=== PATIENT | female | born 1965 | race Caucasian/White ===

== ENCOUNTER 2017-02-22 09:43 | Day surgery (SDC) | payer OTHER ==
[2017-02-10 11:45] VITALS: BMI 28.3
--- NOTE | 2017-02-16 11:21 | HP ---
Admitting History and Physical - Primary Care Physician PCP: Cayden Odell - Admission Chief Complaint: Right breast atypia and LCIS History of Present Illness: 51 year old premenapausal female with H/O prior silicone breat augmentation 2011. Mammogram 12/2016 showed calcifications right breast posterior 5:00. Stereotactic core biopsy right breast 12/2016 showed LCIS and atypia. History Source: Patient Limitations to Obtaining History: No Limitations - Past Medical History Pulmonary: Yes: Asthma Reproductive: Yes: Other (menorhagia) ...LMP Comment: POST HYSTERECTOMY BSO- 01/2017 Infectious Disease: Yes: Other (herpes) Psych: Yes: Anxiety - Past Surgical History Past Surgical History: Yes: Hysterectomy (TAHBSO 01/2017 benign), Tubal Ligation (2001) Additional Past Surgical History: abdominoplasty 2005 Bilateral silicone augmentation 201right core bx 2015 benign left foot surgery - Advance Directives Advance Directives: Yes: Health Care Proxy - Smoking History Smoking history: Former smoker Have you smoked in the past 12 months: No If you are a former smoker, when did you quit?: 2006 - Alcohol/Substance Use Hx Alcohol Use: Yes (SOCIALLY) Home Medications - Allergies Allergies/Adverse Reactions: Allergies Allergy/AdvReac Type Severity Reaction Status Date / Time Cephalosporins Allergy Severe RESPIRATORY Verified 02/10/17 11:48 DISTRESS moxifloxacin HCl Allergy Severe SEVERE ABD Verified 02/10/17 11:48 [From Avelox] PAIN, DIFFICULTY BREATHING Sulfa (Sulfonamide Allergy Severe RESPIRATORY Verified 02/10/17 11:48 Antibiotics) DISTRESS CAT SCAN DYE Allergy Severe RESPIRATORY Uncoded 02/10/17 11:48 DISTRESS - Home Medications Home Medications: Ambulatory Orders Biotin 1 mg PO DAILY 02/10/17 Ca/D3/Mag#11/Zinc/Accountant Bookkeeper/Eyal/Bor [Caltrate 600+D Plus Tablet] 1 each PO DAILY 09/28 Salmeterol/Fluticasone [Advair 250Mcg/50Mcg -] 1 inh IH BID 02/10/17 Turmeric Root Extract [Turmeric] 500 mg PO DAILY 02/10/17 Valacyclovir HCl [Valtrex] 1,000 mg PO DAILY 02/10/17 Family Disease History - Family Disease History Family Disease History: CA: Brother (CRC 42 living) Physical Examination Constitutional: Yes: Well Nourished Breast(s): Yes: Other (Bilateral silicone implants intact ptotic breasts over implants no palpable masses or adenopathy bilaterally) Problem List - Problems (1) Atypical ductal hyperplasia of right breast Code(s): N60.91 - UNSPECIFIED BENIGN MAMMARY DYSPLASIA OF RIGHT BREAST Assessment/Plan Right breast wide excision with mammogram needle localization
[2017-02-22] MEDS ORDERED: ISOSULFAN BLUE 10 MG/ML VIAL SQ ONE (12:41)
[2017-02-22] MEDS ORDERED: MIDAZOLAM HCL 2 MG/2 ML SINGLE DOSE VIAL ONE ×2 (13:02→13:03)
[2017-02-22] MEDS ORDERED: LIDOCAINE HCL/PF 2% SDV 5ML VIAL ONE (13:03)
[2017-02-22] MEDS ORDERED: PROPOFOL 20 ML ONE (13:03)
[2017-02-22] MEDS ORDERED: SUCCINYLCHOLINE CHLORIDE 200 MG/10 ML VIAL ONE (13:05)
[2017-02-22] MEDS ORDERED: ePHEDrine SULFATE 50 MG/1 ML AMPULE ONE (13:16)
[2017-02-22] MEDS ORDERED: BUPIVACAINE HCL/PF 0.25% (2.5MG/ML) 10 ML VIAL IJ ONE (13:50)
[2017-02-22] MEDS ORDERED: KETOROLAC TROMETHAMINE 30 MG/1 ML VIAL IVPUSH PRN (14:05)
[2017-02-22] MEDS ORDERED: ONDANSETRON 4 MG/2 ML VIAL IVPB PRN (14:05)
[2017-02-22] MEDS ORDERED: DEXTROSE 5%-0.45% SALINE 1,000 ML IV SCH (14:15)
[2017-02-22 14:59] VITALS: TEMP 97.6
[2017-02-22 15:51] VITALS: BP 160/82; PULSE 60
--- NOTE | 2017-02-23 12:30 | OP ---
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 PROCEDURE: Right breast wide excision with needle localization. ANESTHESIA: General laryngeal mask airway anesthesia. PRIMARY SURGEON: Alex Odell MD SENIOR UI DESIGNER: GEOVANNA Proctor COMPLICATIONS: There were no complications. INDICATIONS: Briefly, the patient is a 51-year-old postmenopausal white female of Faro[place], [place], [place] descent. She has no family history of breast or ovarian cancer. The patient has a history of silicone augmentation implants in October of 2011. She underwent a benign right breast core biopsy in 2014. She recently underwent a mammography in December of 2016, was found to have some calcifications in the right breast 5 o'clock region and underwent a stereotactic biopsy on December 31, 2016, showing LCIS and atypia. Biopsy was reviewed confirming this, and she was booked for right breast wide excision with mammographic needle localization. The patient was brought in for the procedure on February 22, 2017. She first underwent a mammographic needle localization, was brought to the holding area in the OR. In the holding area, site verification was made and informed consent was obtained. DESCRIPTION OF PROCEDURE: She was brought into the operating room and laid on the OR table in the supine position. Venodynes were placed on the lower extremities. She received no antibiotics given the small nature of the procedure. She underwent general laryngeal mask airway anesthesia. The right breast was sterilely prepped and draped in the usual fashion. A curvilinear incision was made just above the exit side of the wire for the skin in the 5 o'clock region of the right breast, and dissection was undertaken around the needle localization. The breast tissue was completely removed from around the wire and oriented with the long-lateral short-superior suture. Specimen radiographs showed removal of the clip in question. Hemostasis was achieved. The breast parenchyma was then reapproximated using 2-0 plain suture. The skin was closed using interrupted 3-0 deep dermal Vicryl suture and a running 4-0 subcuticular Monocryl suture. Mastisol and Steri-Strips were applied over the wound with a compressive dressing placed over this. The patient tolerated the procedure well without difficulty, was brought to the post-anesthesia care unit in stable condition. She will be recovered and discharged home the same day. Estimated blood loss was minimal. All sponge and needle counts were correct. She is to follow up in the office in one week for a formal wound pathology check. ALEX ODELL M.D. [id number]
--- NOTE | 2017-02-24 12:01 | PATH ---
Surgical Pathology Report Patient Name: GERALDINE HATFIELD [facility]. Rec. #: [id number] /Age/Gender: 1965 (Age: 51) / F Account: [id number] Location: [facility] AMBULATORY Taken: 02/22/2017 Received: 02/22/2017 Reported: 02/24/2017 Physicians: Cayden Odell M.D. Specimen(s) Received RIGHT BREAST WIDE EXCISION Clinical History Atypia on core biopsy Final Diagnosis RIGHT BREAST, WIDE EXCISION WITH WIRE LOCALIZATION: FOCAL ATYPICAL LOBULAR HYPERPLASIA (ALH) ARISING IN A BACKGROUND OF FIBROCYSTIC CHANGES INCLUDING USUAL DUCTAL HYPERPLASIA (UDH), COLUMNAR CELL CHANGE, STROMAL FIBROSIS, DUCTAL DILATATION, CYSTIC APOCRINE METAPLASIA, AND ASSOCIATED CALCIFICATION. CHANGES CONSISTENT WITH PRIOR BIOPSY SITE PRESENT. NO RESIDUAL LOBULAR CARCINOMA IN SITU (LCIS) IDENTIFIED. Comment: Also see [id number]. Electronically Signed Stu Parikh M.D. Gross Description Received in formalin, labeled "right breast wide excision," is a 2.8 x 2.5 x 1.9 cm. fang-yellow, irregular, portion of fibroadipose tissue. There is a needle localization wire separately received within the container which appears to have detached from the specimen. There is a short suture marking the superior aspect and a long suture marking the lateral aspect, per the surgeon. There is no skin or nipple present. The specimen is inked as follows: superior and lateral blue; inferior green; medial yellow; anterior red; deep black. The specimen is serially sectioned from lateral to medial. Sectioning reveals a 0.9 x 0.9 x 0.7 cm ill-defined focus of firm fibrosis. No definite mass is identified. The focus of firm fibrosis abuts the superior and deep margins. The specimen is entirely and sequentially submitted in 7 cassettes with the lateral margin in cassette 1, the medial margin in cassette 7 and the firm focus in cassettes 3-6. Time to formalin fixation: 13 minutes Total formalin fixation time: Approximately 28 hours. 02/23/2017 [facility]02/23/2017
== END 2017-02-22 15:50 | disposition home or self-care (01) ==
LOC: FASU 09:43
PROVIDERS: ATTEND Surgery Surgical Oncology
PROC: 0HBT0ZX Excision of Right Breast, Open Approach, Diagnostic (ICD-10-PCS; principal; 2017-02-22 13:00)
DX: D05.01 Lobular carcinoma in situ of right breast (principal); N60.81 Other benign mammary dysplasias of right breast; N62 Hypertrophy of breast; N60.31 Fibrosclerosis of right breast; N64.89 Other specified disorders of breast; N60.11 Diffuse cystic mastopathy of right breast
CPT/HCPCS: 19281; 88307-TC; 94760

== ENCOUNTER 2017-06-08 06:15 | Day surgery (SDC) | payer SELFPAY ==
[2017-05-30 16:54] VITALS: BMI 27.4
[2017-06-08] MEDS ORDERED: GENTAMICIN SO4 80 MG/2 ML VIAL ONE (06:54)
[2017-06-08] MEDS ORDERED: LIDOCAINE 1%/EPI 1:100000 (20 ML MULTI DOSE VIAL) ONE (06:55)
[2017-06-08] MEDS ORDERED: LIDOCAINE HCL 1%, 10 MG/ML (20ML VIAL) ONE (06:55)
[2017-06-08] MEDS ORDERED: BUPIVACAINE HCL/PF 0.5% (5MG/ML) 10 ML VIAL ONE (06:55)
[2017-06-08] MEDS ORDERED: GUM MASTIC/STORAX/MSAL/ALCOHOL 1 DRP DROPSBTL MC ONE (06:55)
[2017-06-08] MEDS ORDERED: BACITRACIN 15 GM TUBE TOPICAL OINTMENT ONE (06:55)
[2017-06-08] MEDS ORDERED: PROPOFOL 20 ML ONE ×5 (07:19→11:29)
[2017-06-08] MEDS ORDERED: MIDAZOLAM HCL 2 MG/2 ML SINGLE DOSE VIAL ONE ×2 (07:19→12:27)
[2017-06-08] MEDS ORDERED: SUCCINYLCHOLINE CHLORIDE 200 MG/10 ML VIAL ONE (07:19)
[2017-06-08] MEDS ORDERED: ROCURONIUM BROMIDE 50 MG/5 ML VIAL ONE ×2 (07:19→08:58)
[2017-06-08] MEDS ORDERED: LIDOCAINE HCL/PF 2% SDV 5ML VIAL ONE (07:20)
[2017-06-08] MEDS ORDERED: LIDOCAINE HCL 2% JELLY (5 ML/TUBE) ONE (07:20)
[2017-06-08] MEDS ORDERED: ONDANSETRON 4 MG/2 ML VIAL ONE (07:20)
[2017-06-08] MEDS ORDERED: DEXAMETHASONE SOD PHOSPHATE 4 MG/1 ML VIAL ONE (07:20)
[2017-06-08] MEDS ORDERED: HALOPERIDOL LACTATE 5 MG/ML ONE (07:42)
[2017-06-08] MEDS ORDERED: VANCOMYCIN 1,000 MG VIAL (RESTRICTED TO ID ONLY) ONE (07:43)
[2017-06-08] MEDS ORDERED: ALBUTEROL SO4 6.7 GM HFA INHALER IH ONE (07:43)
[2017-06-08] MEDS ORDERED: ePHEDrine SULFATE 50 MG/1 ML AMPULE ONE (08:24)
[2017-06-08] MEDS ORDERED: BUPIVACAINE HCL/PF 2.5 MG/ML - 30 ML VIAL IJ ONE (09:36)
[2017-06-08] MEDS ORDERED: NEOSTIGMINE METHYLSULFATE 0.5 MG/ML - 10 ML MDV ONE (12:33)
[2017-06-08] MEDS ORDERED: GLYCOPYRROLATE 0.2 MG/1 ML VIAL ONE (12:34)
[2017-06-08] MEDS ORDERED: ACETAMINOPHEN 325 MG TABLET (FP) PO PRN (13:14)
[2017-06-08] MEDS ORDERED: ONDANSETRON 4 MG/2 ML VIAL IVPB PRN (13:14)
[2017-06-08] MEDS ORDERED: diazePAM 5 MG TABLET PO PRN (13:14)
[2017-06-08] MEDS ORDERED: HYDROmorphone HCL CARPU-JECT 1 MG/1 ML DISP.SYRIN IVPB PRN (13:14)
[2017-06-08] MEDS ORDERED: LACTATED RINGERS SOLUTION 1,000 ML IV SCH ×2 (13:15→13:30)
[2017-06-08] MEDS ORDERED: PROMETHAZINE HCL 25 MG/1 ML VIAL IVPUSH PRN (13:16)
[2017-06-08] MEDS ORDERED: ONDANSETRON 4 MG/2 ML VIAL IVPUSH PRN (13:16)
[2017-06-08] MEDS ORDERED: oxyCODONE HCL 5 MG TABLET PO PRN ×2 (13:16)
--- NOTE | 2017-06-08 13:28 | OP ---
Operative Note - Note: Operative Date: 06/08/17 Pre-Operative Diagnosis: Unsatisfactory appearance of abdomen and bilateral breasts Operation: Bilateral breast mastopexy with implant exchange and abdominoplasty with liposuction of the flanks. Findings: Lipodystrophy of abdomen and flanks, ptosis of breasts Implants: breast silicone implants Post-Operative Diagnosis: Same as Pre-op Surgeon: Alexandre Cho School Photographer: Ashley Brady Anesthesiologist/SHOT EXAMINER: Pancho Nickerson Estimated Blood Loss (mls): 100 Drains & Tubes with Location: ELLEN to to abdomen
[2017-06-08] MEDS ORDERED: PT OWN MED DRAWER 7, Y5N ONE (21:45)
[2017-06-08] MEDS: CLINDAMYCIN IVPB SCH (21:52)
[2017-06-08] MEDS: SODIUM CHLORIDE IVPB SCH (21:52)
[2017-06-08] MEDS: BUDESONIDE/FORMETEROL FUMARATE 80/4.5 mcg INHALER IH SCH (21:52)
[2017-06-08] MEDS ORDERED: PATIENT'S OWN MEDICATION (NON-FORMULARY) (Salmeterol/Fluticasone [Advair 250mcg/50mcg -] 1 IH SCH (22:00)
[2017-06-09] MEDS: CLINDAMYCIN IVPB SCH (02:25)
[2017-06-09] MEDS: SODIUM CHLORIDE IVPB SCH (02:25)
[2017-06-09] MEDS ORDERED: LOSARTAN POTASSIUM 25 MG TABLET PO SCH (10:00)
[2017-06-09] MEDS: BUDESONIDE/FORMETEROL FUMARATE 80/4.5 mcg INHALER IH SCH (10:04)
--- NOTE | 2017-06-09 13:36 | OP ---
DATE OF OPERATION: 06/08/2017 PREOPERATIVE DIAGNOSES: 1. Abdominal and flank lipodystrophy. 2. Diastasis recti. 3. Ptosis of bilateral breasts. POSTOPERATIVE DIAGNOSES: 1. Abdominal and flank lipodystrophy. 2. Diastasis recti. 3. Ptosis of bilateral breasts. PROCEDURE: 1. Revision abdominoplasty with anterior rectus sheath plication. 2. Liposuction of bilateral flanks. 3. Removal of bilateral breast implants with open periprosthetic capsulotomy. 4. Bilateral breast augmentation/mastopexy (right breast - Sientra [id number]; left breast - Sientra [id number]). ATTENDING SURGEON: Alexandre Cho MD WINDOW AND DOOR INSTALLER: GEOVANNA Cortes ANESTHESIA: General endotracheal. ESTIMATED BLOOD LOSS: 100 mL. SPECIMEN: Right breast skin and tissue to pathology. DRAIN: A No. 15 round Adiel drain x1 to abdomen. COMPLICATIONS: None. CONDITION: Stable to recovery room, extubated. INDICATIONS: The patient is a 52-year-old female who has previously undergone an abdominoplasty as well as bilateral augmentation mastopexy who presents with diastasis of rectus abdominis muscles and ptosis of bilateral breasts. She is, therefore, indicated for revision of her previous surgeries in addition of liposuction of the flanks. The risks, benefits, and alternatives of the surgery were discussed with the patient in detail on multiple occasions, and all questions were answered. The risks include, but are not limited to, bleeding, infection, pain, need for revision or further surgery, partial or complete flap loss, partial or complete loss of the umbilicus, residual breast asymmetry, damage to neighboring structures including nerves, arteries, veins, and tendons. The patient understands these risks and has elected to proceed with surgery. DESCRIPTION OF PROCEDURE: After proper identification and marking of the patient in the preoperative holding area, the patient was transported to the operating room and placed supine on the table while noninvasive anesthesia monitors were applied. Intravenous access was established. General anesthesia was administered, and the patient was intubated without difficulty. SCD boots were applied to bilateral lower extremities. Intravenous antibiotics were then given. A Gunderson catheter was then placed. The patient's bilateral breasts as well as abdomen and flanks were then prepped and draped in the usual sterile fashion. After a time-out was performed, attention was turned towards the lower abdominal incision marking. This was infiltrated with a local anesthetic solution consisting of 1% lidocaine with 1:100,000 units of epinephrine mixed with 0.5% Marcaine. A total of 10 mL was injected into the proposed lower abdominal incision as well as to bilateral breast vertical incisions. The lower abdominal incision was then made with a No. 10 blade. This was carried down through the full thickness of the subcutaneous tissue until the anterior abdominal wall was reached. The superior abdominal skin flap was then raised up to the level of the umbilicus. At this point, skin hooks were placed at 12 o'clock and 6 o'clock position of the umbilicus, and the umbilicus was circumferentially incised with a No. 15 blade. A periumbilical dissection was performed with the Metzenbaum scissors with care taken to leave adequate periumbilical fat around the stalk. Next, the superior abdominal skin flap was raised up to the xiphoid process in the midline and the costal margin bilaterally. Examination of the anterior abdominal wall revealed multiple previous Ethibond and Prolene sutures. These were all removed and discarded. At this point, standard tumescent solution was infiltrated into bilateral flanks. A total of 1 L was infiltrated, 500 mL into each flank. While this was given time to take effect, attention was turned toward the plication of the anterior rectus sheath. Elliptical imbrication patterns were drawn supraumbilically and infraumbilically. A No. 2 looped PDS suture was then used to perform the plication of the rectus in a simple running fashion. Separate sutures were placed supraumbilically and infraumbilically. At this point, obliquely oriented elliptical pattern imbrications were designed over bilateral external obliques in order to further contour the lateral abdominal wall. A 2-0 PDS suture was used to perform these bilateral imbrications in simple running fashion. Once the anterior abdominal wall plication was completed, power-assisted liposuction was performed of bilateral flanks using the 5 mm. Once this was completed, 3-0 PDS sutures were placed at the 12, 3, 6, and 9 o'clock position of the umbilicus and were tacked down to the fascia. The patient was then placed into a flexed position. The amount of redundant abdominal skin to be excised was marked, and this was excised and discarded. Hemostasis was then achieved. The anterior abdominal wall was then irrigated. A No. 15 round Adiel drain was then placed into the abdominal dissection pocket and brought out through the right lateral incision and secured to the skin with a 3-0 nylon suture. The abdominal skin edges were then reapproximated temporarily using a skin stapler. The site of the umbilicus transposition was marked, and a vertically-oriented ellipse was excised with the subcutaneous fat. The umbilicus along with the 3-0 PDS sutures were brought out through this excision site and were tacked to the dermis at the 12, 3, 6, and 9 o'clock positions. These were then tied down in order to give appropriately umbilical contour. The remainder of the umbilical closure was then performed using a 3-0 PDS in a buried deep dermal fashion followed by a 5-0 nylon in a simple running fashion. The site of the previous umbilicus was closed in a vertical fashion with superior and inferior dogears excised using a 3-0 PDS in a buried deep dermal fashion followed by a 5-0 nylon in a simple running fashion. The abdominal closure was then performed in layers using a 2-0 Vicryl in interrupted buried fashion in Katrina layer followed by 3-0 PDS in a buried deep dermal fashion and a 3-0 Monocryl in a running subcuticular fashion. Mastisol and Steri-Strips were placed over his, and a Biopatch and Tegaderm were placed over the drain exit site. At this point, attention was turned to bilateral breasts where the size Donis pattern scars were marked. Beginning on the right breast, the vertical portion of the scar was incised. Electrocautery was used to carry this down through the full thickness of the breast tissue until the capsule surrounding the breast implant was encountered. This capsule was incised, and the intact breast implant was removed and passed off the field. At this point, the right breast capsule was inspected, and it was noted to be soft. Capsulotomy was performed laterally and inferiorly, and the right breast pocket was then copiously irrigated. A saline breast sizer was placed into the right breast pocket, and the skin edges were temporarily stapled closed. The sizer was then inflated with 385 mL of air. Attention was then turned towards the left breast where a similar procedure was performed in order to incise the breast skin, dissect down to the breast capsule, and remove the breast implant. A capsulotomy of the left breast capsule was performed as well along the inferior and lateral aspect. Once this was completed, a sizer was placed into the left breast pocket, the skin edges were temporarily reapproximated with a skin stapler and the sizer inflated to 435 mL with air. At this point, the patient was sat upright, and the left breast contour was noted to be excellent. The right breast contour was noted to have redundant skin in a horizontal fashion; therefore, this breast was tailor tacked until the appropriate contour was achieved. Once this was accomplished, the patient was laid back down. The skin partha were removed after marking the skin to be excised. The right breast pocket was then irrigated with triple antibiotic solution. At this point, a Sientra style 107, 385-mL moderate profile smooth, round silicone implant was opened and bathed in triple antibiotic solution. At this point, gloves were changed, and a Penny Funnel was used to insert the breast implant into the right breast pocket. After proper positioning was confirmed, the redundant skin was excised along both the vertical and horizontal limbs. The T point at the inframammary fold was then reapproximated using a 2-0 nylon suture in a half buried horizontal mattress fashion. The vertical and horizontal limbs were then closed in layers with a 3-0 PDS in a buried deep dermal fashion followed by a 4-0 Monocryl in a running subcuticular fashion. At this point, attention was turned towards the left breast where the same procedure was performed in order to remove the sizer and wash the pocket. The left breast inserted was a Sientra style 107, 435-mL moderate profile smooth, round silicone implant. Once proper positioning was ensured, the skin edges were reapproximated along the vertical and horizontal limbs using a 3-0 PDS in a buried deep dermal fashion followed by a 4-0 Monocryl in a running subcuticular fashion. Once all incisions were completely closed, dressings consisting of Mastisol and Steri-Strips followed by ABD pads, a soft surgical bra, and an abdominal binder were placed. The drain was hooked up to bulb suction, and the patient at this point was slowly awakened and was extubated without incident and then was transported to recovery room in stable condition. Ed [id number]
[2017-06-09 14:14] VITALS: BP 112/68; PULSE 70; TEMP 98.2
--- NOTE | 2017-06-10 15:42 | PATH ---
Surgical Pathology Report Patient Name: GERALDINE HATFIELD [facility]. Rec. #: [id number] /Age/Gender: 1965 (Age: 52) / F Account: [id number] Location: [facility] AMBULAT[facility] Taken: 06/08/2017 Received: 06/08/2017 Reported: 06/10/2017 Physicians: Alexandre Dickson M.D. Specimen(s) Received A: RIGHT BREAST TISSUE B: ABDOMINAL TISSUE AND SKIN C: OLD BREAST IMPLANTS Clinical History Cosmetic and history of right breast cancer Final Diagnosis A. BREAST TISSUE, RIGHT, EXCISION: SKIN WITH SCAR. FIBROADIPOSE TISSUE WITH NO PATHOLOGIC FINDINGS. B. ABDOMINAL TISSUE AND SKIN, ABDOMINOPLASTY: SKIN AND ADIPOSE TISSUE, DESCRIBED (GROSS EXAMINATION ONLY). C. BREAST IMPLANTS, REMOVAL: IMPLANTS, DESCRIBED (GROSS EXAMINATION ONLY). Electronically Signed Dee Bills M.D. Gross Description A. Received in formalin labelled "right breast tissue" is a 6 x 1.5 cm ellipse of skin with a well-healed linear scar. There is a 3.5 x 2.4 x to 2.7 cm attached portion of lobulated yellow adipose tissue. Cut surface reveals no indurated masses. A member service representative section is submitted one cassette. B. Received in formalin labelled "abdominal tissue and skin" is a 270 gram aggregate of skin with attached yellow adipose tissue. The specimen measures 36 x 4 x 3 cm. No focal lesions are identified. This is for gross identification only. C. Received dry labeled "old breast implants (gross)" are 2 gel filled plastic medical devices is consistent with breast implants. One of these is indicated to be Allergan style 15 234 cc Lot [id number]. The other is indicated to be Allergan style 15 265 cc Lot [id number]. This is for gross identification only. [facility]/06/09/2017 [facility]/06/09/2017
== END 2017-06-09 15:27 | disposition home or self-care (01) ==
LOC: FASU 06:15 → FM/S 13:17 → FASU 06-09 15:27
PROVIDERS: ATTEND Plastic Surgery
PROC: 0J080ZZ Alteration of Abdomen Subcutaneous Tissue and Fascia, Open Approach (ICD-10-PCS; principal; 2017-06-08 08:43)
PROC: 0J083ZZ Alteration of Abdomen Subcutaneous Tissue and Fascia, Percutaneous Approach (ICD-10-PCS; 2017-06-08 08:43)
PROC: 0HNV0ZZ Release Bilateral Breast, Open Approach (ICD-10-PCS; 2017-06-08 08:43)
PROC: 0H0V0JZ Alteration of Bilateral Breast with Synthetic Substitute, Open Approach (ICD-10-PCS; 2017-06-08 08:43)
DX: Z41.1 Encounter for cosmetic surgery (principal); E88.1 Lipodystrophy, not elsewhere classified; Q79.59 Other congenital malformations of abdominal wall; N64.81 Ptosis of breast
CPT/HCPCS: 88300-TC; 88304-TC; 94010; 94760

== ENCOUNTER 2018-09-29 06:15 | Day surgery (SDC) | payer SELFPAY ==
[2018-09-28 16:27] VITALS: BMI 26.1
[2018-09-29] MEDS ORDERED: SODIUM BICARBONATE 8.4% - 50 ML ONE ×2 (07:27→07:30)
[2018-09-29] MEDS ORDERED: EPINEPHrine/PF 1 MG/1 ML (1:1,000) AMPULE ONE (07:30)
[2018-09-29] MEDS ORDERED: VANCOMYCIN 1,000 MG VIAL (RESTRICTED TO ID ONLY) ONE (07:34)
[2018-09-29] MEDS ORDERED: GENTAMICIN SO4 80 MG/2 ML VIAL ONE (07:34)
[2018-09-29] MEDS ORDERED: ceFAZolin SODIUM 1 GM VIAL ONE (07:34)
[2018-09-29] MEDS ORDERED: LIDOCAINE 1%/EPI 1:100000 (20 ML MULTI DOSE VIAL) ONE ×2 (07:50→11:03)
[2018-09-29] MEDS ORDERED: MIDAZOLAM HCL 2 MG/2 ML SINGLE DOSE VIAL ONE (07:57)
[2018-09-29] MEDS ORDERED: LIDOCAINE HCL/PF 2% SDV 5ML VIAL ONE (08:06)
[2018-09-29] MEDS ORDERED: DEXAMETHASONE SOD PHOSPHATE 4 MG/1 ML VIAL ONE ×2 (08:06→10:42)
[2018-09-29] MEDS ORDERED: PROPOFOL 20 ML ONE (08:08)
[2018-09-29] MEDS ORDERED: ROCURONIUM BROMIDE 50 MG/5 ML VIAL ONE ×2 (08:09→09:09)
[2018-09-29] MEDS ORDERED: LIDOCAINE 1%/EPI 1:100000 (20 ML MULTI DOSE VIAL) IJ ONE (08:21)
[2018-09-29] MEDS ORDERED: CLINDAMYCIN PHOSPHATE 600 MG/4 ML VIAL ONE (08:25)
[2018-09-29] MEDS ORDERED: ePHEDrine SULFATE 50 MG/1 ML AMPULE ONE (08:29)
[2018-09-29] MEDS ORDERED: GLYCOPYRROLATE 0.2 MG/1 ML VIAL ONE (10:42)
[2018-09-29] MEDS ORDERED: NEOSTIGMINE METHYLSULFATE 0.5 MG/ML - 10 ML MDV ONE (10:42)
[2018-09-29] MEDS ORDERED: BENZOIN TINCTURE SWABSTICK TP ONE (11:35)
[2018-09-29] MEDS ORDERED: oxyCODONE HCL 5 MG TABLET PO PRN (11:46)
[2018-09-29] MEDS ORDERED: ONDANSETRON 4 MG/2 ML VIAL IVPUSH PRN (11:46)
[2018-09-29] MEDS ORDERED: ACETAMINOPHEN 325 MG TABLET (FP) PO PRN (11:46)
[2018-09-29] MEDS ORDERED: LACTATED RINGERS SOLUTION 1,000 ML IV SCH (12:00)
[2018-09-29 13:58] VITALS: TEMP 98.2
[2018-09-29] MEDS ORDERED: oxyCODONE HCL 5 MG TABLET ONE (14:03)
[2018-09-29 16:14] VITALS: BP 120/64; PULSE 65
--- NOTE | 2018-09-30 12:54 | OP ---
DATE OF OPERATION: 09/29/2018 PREOPERATIVE DIAGNOSES: 1. Capsular contracture of the right breast. 2. Lipodystrophy of abdomen, flanks and submental region. POSTOPERATIVE DIAGNOSES: 1. Capsular contracture of the right breast. 2. Lipodystrophy of abdomen, flanks and submental region. PROCEDURES: 1. Bilateral breast implant removal with open periprosthetic capsulectomies. 2. Bilateral breast implant insertion (right breast - Sientra [id number] - 565HP, left breast - Sientra [id number] - 620HP). 3. Suction-assisted lipectomy of abdomen, flanks, and submental region. 4. Scar revision of umbilicus. ATTENDING SURGEON: Alexandre Cho M.D. ANESTHESIA: General endotracheal. ESTIMATED BLOOD LOSS: 30 mL SPECIMEN: None. DRAINS: None. COMPLICATIONS: None. CONDITION: Stable to recovery room, extubated. INDICATIONS: The patient is a 53-year-old female with the history of bilateral submuscular breast augmentation. She now presents with a painful right breast capsular contracture, which has been progressing. The patient is therefore brought to the operating room today for bilateral implant removal with capsulectomies and reinsertion of bilateral breast implants. In addition, the patient would like correction of lipodystrophy of the abdomen, flanks and submental region. The risks, benefits and alternatives of the surgery were discussed with the patient in detail and all questions were answered. The risks included, but are not limited to bleeding, infection, pain, need for revision or further surgery, recurrence of capsular contracture, residual breast asymmetry, damage to nearby structures, including nerves, arteries, veins and tendons. The patient understands these risks and has elected to proceed with surgery. PROCEDURE: After proper identification and marking the patient in the preoperative holding area, the patient was transported to the operating room and placed supine on the table and noninvasive anesthesia monitors were applied. Intravenous access was established. General anesthesia was administered and the patient was intubated without difficulty. SCD boots were applied to bilateral extremities. Intravenous antibiotics were then given. The patient's bilateral breasts, abdomen and flanks, submental region were then prepped and draped in the usual sterile fashion. After a timeout was performed, local anesthesia consisting of 1% lidocaine with 1:100,000 units of epinephrine was infiltrated along bilateral inframammary fold scars, as well as around the umbilicus, as well as the infraumbilical scar. After a timeout was performed, attention was turned towards the right breast where a No. 15 blade was used to incise the previous inframammary fold scar. This was carried down to the full-thickness of the subcutaneous tissue with electrocautery, until the underlying breast capsule was identified. The breast capsule was noted to be tight, consistent with the capsular contracture. At this point, electrocautery was used to dissect on the superficial surface of the capsule proceeding from an inferior to superior direction. The dissection continued superiorly under the pectoralis major muscle belly until the superior aspect of the capsule was encountered. Next, the capsule was dissected off of the underlying chest wall and the capsule with the intact silicone breast implant was removed from the right breast pocket and passed off the field. At this point, the right breast pocket was copiously irrigated with saline solution and hemostasis was achieved. Next, a sizer was placed into the right breast pocket and was gradually inflated with air until an ideal contour was achieved. This was noted to be 565 mL. The skin edges were temporarily stapled close. At this point, attention was turned towards the left breast where the exact same procedure was performed and therefore only side will be dictated. On the left breast, the sizer was inserted and inflated to 620 mL and this was noted to achieve an ideal contour with a symmetric size of the right breast. Therefore attention was turned back towards the right breast where the sizer was removed. The right breast pocket was then irrigated with triple antibiotic solution, as well as Betadine solution. Hemostasis was again ensured. At this point, gloves were changed and a Sientra 565 mL high profile smooth round silicone breast implant was placed into the right breast pocket. Once proper positioning and orientation was confirmed, the right breast inframammary fold incision was closed in layers with a 3-0 PDS in a buried deep dermal fashion, followed by a 4-0 Monocryl in a running subcuticular fashion. Attention at this point was turned towards the left breast where the sizer was removed. The left breast pocket was then prepared in a similar fashion as to the right side and therefore only one side will be dictated. On the left breast, a 620 mL high profile smooth round silicone implant was placed into the pocket. Once proper positioning and orientation was confirmed, the left breast inframammary fold incision was closed in layers with a 3-0 PDS in a buried deep dermal fashion, followed by a 4-0 Monocryl in a running subcuticular fashion. Prineo tape was then applied bilateral breast inframammary fold closure lines. At this point, attention was turned towards the abdomen where stab incisions were made bilaterally along the patient's previous lower abdominal scar. Standard tumescent solution was then infiltrated into the subcutaneous tissue of the abdomen and bilateral flanks, as well as the suprapubic region. Attention was then turned towards the submental region where a stab incision was made in the submental area and standard tumescent solution was also infiltrated into the subcutaneous tissue of the submental neck. At this point, attention was turned towards the umbilicus where a 15 blade was used to incise around the previous scar from the 2 o'clock to the 10 o'clock position. The superior skin was kept intact in order to ensure viability. At this point, a curved iris scissor was used to carry the dissection down to the underlying abdominal wall fascia. A 3-0 PDS suture was then placed in an interrupted buried 3-point fashion in order to tack the umbilicus down to the fascia and create more of a natural appearance. Once this was achieved, the Micro Air System was loaded with the 4 mm cannula and suction-assisted lipectomy was performed of the abdomen, flanks, and mons region. Once an ideal contour was achieved, the access incisions were closed. A 5-0 plain gut was placed in a simple interrupted fashion along the lower abdominal access incisions. The umbilical incision was then closed with a 5-0 Monocryl in a running subcuticular fashion. At this point, attention was turned towards the submental area where the Micro Air System was loaded with the 3 mm cannula and suction-assisted lipectomy of the submental region was then performed. Once an ideal contour was achieved, the access incision was closed with a 5-0 plain gut in a simple interrupted fashion. At this point, Mastisol and Steri-Strips were placed over the submental closure line. The umbilicus and lower abdominal access incisions were dressed with an eye patch and Tegaderm. The patient at this point was placed into a soft surgical bra with care taken to ensure adequate padding with ABD pads. The patient was also placed into an abdominal binder with care taken to ensure adequate padding with ABD pads. At this point, a submental compression dressing was placed and next, the patient was slowly awakened and extubated without incident and transported to the recovery room in stable condition. ALEXANDRE CHO M.D. [id number]
== END 2018-09-29 16:05 | disposition home or self-care (01) ==
LOC: JASU-SURG 06:15
PROVIDERS: ATTEND Plastic Surgery
PROC: 0J083ZZ Alteration of Abdomen Subcutaneous Tissue and Fascia, Percutaneous Approach (ICD-10-PCS; 2018-09-29)
PROC: 0HWU0JZ Revision of Synthetic Substitute in Left Breast, Open Approach (ICD-10-PCS; principal; 2018-09-29 08:00)
PROC: 0HWT0JZ Revision of Synthetic Substitute in Right Breast, Open Approach (ICD-10-PCS; 2018-09-29 08:00)
DX: T85.44XA Capsular contracture of breast implant, initial encounter (principal); E65 Localized adiposity
CPT/HCPCS: 94760